=== PATIENT | female | born 1970 | race Caucasian/White ===

== ENCOUNTER → 2020-07-19 | Outpatient (CLI) | payer BC, OTHER ==
[~2020-07-19] MED LIST: FISH OIL GUMMI1 EAC1 PO; GYNODIOL0.5 MG PO; LOSARTAN-HCTZ1 EACH PO; MULTI VITAMIN1 EACH PO; OMEPRAZOLE40 MG PO; VITAMIN B122500 MC1 PO; VITAMIN C PO
== END ==
LOC: LAB 09:21
PROVIDERS: ATTEND Surgery
DX: Z01.812 Encounter for preprocedural laboratory examination (principal); Z20.828 Contact with and (suspected) exposure to other viral communicable diseases

== ENCOUNTER 2020-07-24 10:05 | Observation (INO) | payer BC, OTHER ==
[~2020-07-24] VITALS: Ht 162.6 cm; Wt 71.7 kg
[2020-07-24 10:55] LABS: CALCIUM 9.8 mg/dL (8.5-10.1); CREATININE 0.9 mg/dL (0.6-1.0); POTASSIUM 3.7 mmol/L (3.5-5.1)
[2020-07-24 11:30] VITALS: BP 130/86
--- NOTE | 2020-07-24 20:07 | NUR ---
PT ADMITTED FROM PACU AT 1605, A&Ox4. AT BEDSIDE. LAPSITESx9. ABDOMINAL BINDER IN PLACE. PAIN TOLERATED WELL WITH PAIN MEDICATION ON BOARD. PT UP TO THE BEDSIDE COMMODE WITH ONE ASSIST. TOLERATED CLEAR LIQUIDS WELL AND ADVANCED TO SOFT FIBER DIET. SCD'S IN PLACE. VITALS STABLE. IV PATENT WITH NO REDNESS OR EDEMA, FLUIDS INFUSING. FALL PROTOCOL IN PLACE. CALL LIGHT IN REACH WILL CONTINUE TO MONITOR.
[2020-07-24 21:35] VITALS: BP 134/76
--- NOTE | 2020-07-25 02:50 | NUR ---
NICE LADY. ALERT AND ORIENTED. REQUIRES ASSIST TO THE BSC. STILL MOVING SLOWLY BUT GETTING BETTER.LAP SITES ALL WITH BANDAIDS AND ARE DRY.VSS. IVF STARTED WELL ABTS.SCDS IN PLACE. ABDOMINAL BINDER IN PLACE.ORAL PAIN MEDS GIVEN WELL FENTANYL FOR BREAK TRHOUGH PAIN.TOLERATING ORAL INTAKE WITHOUT C/O N/V.CALL LIGHT WITHIN REACH.
--- NOTE | 2020-07-25 08:38 | NUR ---
ASSESSMENT: CM REVIEWED CHART AND SPOKE WITH PT WHO IS ALERT AND ORIENTED X4. PT IS S/P HERNIA REPAIR. PT REPORTS SHE LIVES IN A HOUSE WITH HER FAMILY. PT REPORTS TWO STEPS TO ENTER AND NO STEPS ONCE INSIDE. PT REPORTS BEING FULLY INDEPENDENT WITH ADLS AND AMBULATION. PT REPORTS NO HX OF HH OR SNF. CM DISCUSSED ROLE. PT DOES NOT ANTICIPATE HAVING ANY NEEDS FROM CM. PLANS ARE FOR PT TO RETURN HOME WITH NO NEEDS AT DISCHARGE.
[2020-07-25 10:31] VITALS: BP 112/62
--- NOTE | 2020-07-25 10:42 | NUR ---
RD received nutrition consults for wounds. Pt visited this am, is s/p hernia repair. Pt with good appetite and eating well. 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 Reports 20# intentional wt loss over past 6-8 months. No pressure ulcers noted. Pt with no nutritional questions/concerns. Pt is at low nutritional risk.
--- NOTE | 2020-07-25 11:19 | NUR ---
PT CARE ASSUMED AT 0700. A&Ox4. WALKING HALLWAYS. IV PATENT WITH NO REDNESS OR EDEMA, FLUIDS INFUSING. LAPSITES x9 DRY AND INTACT. ABDOMINAL BINDER IN PLACE. PAIN CONTROLLED WELL WITH PAIN MEDICATION ON BOARD. TOLERATING DIET WELL. SCD'S IN PLACE. CALL LIGHT IN REACH. WILL CONTINUE TO MONITOR.
[2020-07-25] MEDS ORDERED: HYDROCODON-ACE1 EAC7 PO (15:49)
[2020-07-25] MEDS ORDERED: VALIUM5 MG PO (15:50)
--- NOTE | 2020-07-25 15:59 | O ---
[facility] [place] [address] OPERATIVE REPORT Name: ZAIRE BILLY [id number]: 07/24/20 Attend Phys: Daniel Almendarez MD Discharge: Date of : 70 Report #: [id number] THIS REPORT FOR: cc: Todd Castro MD, Alberto MD Chu,Daniel Mandujano MD ~ PREOPERATIVE DIAGNOSIS: Recurrent incisional hernia. POSTOPERATIVE DIAGNOSIS: Recurrent incisional hernia. PROCEDURE PERFORMED: Laparoscopic repair of recurrent incisional hernia located in the suprapubic area. ANESTHESIA: General. SURGEON: Daniel Almendarez MD COMPLICATIONS: None. ESTIMATED BLOOD LOSS: 10 mL. IMPLANT: A [address] mesh was used. PROCEDURE NOTE: With the patient under general anesthesia, a Alvarado catheter was placed. A right upper quadrant cutdown incision was made. Anterior fascia was identified, opened up. The muscle was spread. The posterior fascia was grasped with hemostat, 0 Vicryl suture was placed on the anterior fascia and also the posterior fascia. Abdominal cavity was free here. An 11 mm balloon trocar was placed. Balloon was inflated. Two 5 mm trocars were placed laterally on the left side. The patient had a large hernia defect located just above the pubic bone. This measured about a 12 x 8 cm. A 6 x 9 Ventralight mesh was used. This has the Echo balloon scaffold. This was placed through the cutdown side. The patient had a small omental adhesion to the hernia sac. This was freed. Dissection was then carried out along the inferior edge of the fascia defect by freeing the peritoneum. Peritoneum was brought down off the pubic bone, which is just inferior to this by about a centimeter or so. Properitoneal dissection was then carried out bluntly. The bladder was taken down. The dissection freed the peritoneum all the way across identifying the inferior epigastric artery. The mesh was then placed. The tube for the Echo balloon was brought out in the mid part of the hernia sac. The scaffolding was inflated. The mesh was turned, so the mesh was sitting transversely with a long axis, the 8 inches across transversely and then the 6 is up and down. The mesh was tucked under the pubic bone about 3-4 cm in the mid part. The mesh was tacked to the area above the pubic bone with SorbaFix. Mesh was then tacked around the rest of the wall. A transfascial suture was used at 4:30 and then at 7:30 position. This was placed through the part of the fascia just above the pubic bone through the mesh and [address] [address] OPERATIVE REPORT Name: MARIAJOSEZAIRE Room #: 433-I [facility] Arnulfo Brown#: [id number] Admission: 07/24/20 Attend Phys: Daniel Almendarez MD Discharge: Date of : 70 Report #: [id number] then through a just superior part of the mesh. The knot was tied down with [place] CV-02 suture. More superior part of the mesh was sewn down at 1:30 and then 10:30 position. Suture was also placed at the 3 and 9 o'clock position. A total of 6 fascial sutures were used. The peritoneum was then brought back up over the mesh and tacked with SorbaFix. No injury to the surrounding tissue. CO2 was evacuated. Trocars removed. The fascia defect at the cutdown site was closed with 0 PDS. Posterior fascia was closed with [id number] 0 PDS x 2. The anterior fascia was closed with 0 [id number] x 2. Skin was irrigated. The trocar site was closed with 5-0 PDS in interrupted fashion. Dermabond was applied. Previous fascial sutures were also closed with Dermabond. It was sealed with Dermabond. Band-Aids were used. The patient tolerated the procedure well and was taken to recovery room. <ELECTRONICALLY SIGNED> By: Daniel Almendarez MD 07/25/20 1559 [id number] Daniel Almendarez MD /nt
[2020-07-25 16:05] VITALS: BP 112/62
== END 2020-07-25 16:25 | disposition home or self-care (01) ==
LOC: OR 10:05 → TBA 10:20 → OR 13:42 → 4S 16:00 → OR 16:01 → 4S 07-25 16:25
PROVIDERS: ADMIT Surgery; ATTEND Surgery
DX: K43.2 Incisional hernia without obstruction or gangrene (principal); Z79.899 Other long term (current) drug therapy
CPT/HCPCS: 50010; 50101; 50386; 50455; 50555; 50687; 50848; 50859; 52265; 53307; 53335; 54022; 54118; 56525; 56526; 56530; 57092; 62110; 62900; 70005